=== PATIENT | female | born 1955 | race Caucasian/White ===

== ENCOUNTER 2016-10-17 04:12 | Inpatient (IN) | payer BC ==
[2016-10-17] MEDS ORDERED: SODIUM CHLORIDE 0.9% 1,000 ML IV STA ×2 (04:35)
[2016-10-17] MEDS ORDERED: SODIUM CHLORIDE 0.9% 500 ML IV STA (04:35)
[2016-10-17] MEDS ORDERED: IBUPROFEN 600 MG TAB PO STA (04:35)
[2016-10-17] MEDS ORDERED: ACETAMINOPHEN TAB 500 MG TAB PO STA (04:35)
[2016-10-17] MEDS ORDERED: IPRATROPIUM-ALBUTEROL 3 ML NEB INHALATION STA ×2 (04:36→04:43)
--- NOTE | 2016-10-17 04:43 | ED ---
General Adult HPI - General Chief complaint: Fever Stated complaint: weakness,cough Time Seen by Provider: 10/17/16 04:35 Source: patient, RN notes reviewed, old records reviewed Mode of arrival: ambulatory Limitations: no limitations - History of Present Illness Initial comments: This is a 61-year-old female ER for evaluation. Patient presents today for evaluation of cough congestion shortness of breath and fever. History of COPD and asthma, patient coming in with worsening shortness of breath on and off sick since the new year. No sick contacts, no recent hospitalizations. - Related Data Home Medications Medication Instructions Recorded Confirmed Fluticasone/Salmeterol [Advair Hfa 2 puff INHALATION BID PRN 08/23/14 10/17/16 115-21 Mcg Inhaler] Allergies Allergy/AdvReac Type Severity Reaction Status Date / Time No Known Allergies Allergy Verified 10/17/16 04:19 Review of Systems ROS Statement: Those systems with pertinent positive or pertinent negative responses have been documented in the HPI. ROS Other: All systems not noted in ROS Statement are negative. Past Medical History Past Medical History: Asthma History of Any Multi-Drug Resistant Organisms: None Reported Past Surgical History: Cholecystectomy, Hysterectomy Additional Past Surgical History / Comment(s): cataract Past Psychological History: No Psychological Hx Reported Smoking Status: Never smoker Past Alcohol Use History: None Reported Past Drug Use History: None Reported General Exam Limitations: no limitations General appearance: alert, in no apparent distress, anxious Head exam: Present: atraumatic, normocephalic, normal inspection Eye exam: Present: normal appearance, PERRL, EOMI. Absent: scleral icterus, conjunctival injection, periorbital swelling ENT exam: Present: normal exam, mucous membranes moist Neck exam: Present: normal inspection. Absent: tenderness, meningismus, lymphadenopathy Respiratory exam: Present: respiratory distress, wheezes, accessory muscle use, decreased breath sounds, prolonged expiratory. Absent: rales, rhonchi, stridor Cardiovascular Exam: Present: normal rhythm, tachycardia, normal heart sounds. Absent: systolic murmur, diastolic murmur, rubs, gallop, clicks GI/Abdominal exam: Present: soft, normal bowel sounds. Absent: distended, tenderness, guarding, rebound, rigid Extremities exam: Present: normal inspection, full ROM, normal capillary refill. Absent: tenderness, pedal edema, joint swelling, calf tenderness Back exam: Present: normal inspection Neurological exam: Present: alert, oriented X3, CN II-XII intact Psychiatric exam: Present: normal affect, normal mood Skin exam: Present: warm, dry, intact, normal color. Absent: rash Course Vital Signs 10/17/16 10/17/16 10/17/16 04:16 04:50 04:57 Temperature 103.1 F H Pulse Rate 127 H 112 H 100 Respiratory 24 Rate Blood Pressure 148/74 O2 Sat by Pulse 95 Oximetry 10/17/16 05:59 Temperature 100.5 F H Pulse Rate Respiratory Rate Blood Pressure O2 Sat by Pulse Oximetry - Reevaluation(s) Reevaluation #1: 10/17/16 06:40 Patient feeling mildly improved fever control, symptomatic control and therapy, still feeling weak with body pains, no significant shortness of breath no abdominal pain, again no nausea vomiting or diarrhea EKG Findings - EKG Comments: EKG Findings:: EKG shows sinus tachycardia rate 114, ND 130, QRS 86, QTC 407 Medical Decision Making - Medical Decision Making 61 female to the ED co fever, weakness, generalized body aches and pains. Patient with influenzae, no other source of infection - Lab Data Result diagrams: 10/17/16 04:45 10/17/16 04:45 Lab Results 10/17/16 10/17/16 10/17/16 Range/Units 04:31 04:45 04:45 WBC 9.5 (3.8-10.6) k/uL RBC 5.11 (3.80-5.40) m/uL Hgb 14.8 (11.4-16.0) gm/dL Hct 42.5 (34.0-46.0) % MCV 83.2 (80.0-100.0) fL MCH 28.9 (25.0-35.0) pg MCHC 34.7 (31.0-37.0) g/dL RDW 13.0 (11.5-15.5) % Plt Count 228 (150-450) k/uL Sodium 138 (137-145) mmol/L Potassium 4.6 (3.5-5.1) mmol/L Chloride 100 (98-107) mmol/L Carbon Dioxide 23 (22-30) mmol/L Anion Gap 15 mmol/L BUN 12 (7-17) mg/dL Creatinine 0.70 (0.52-1.04) mg/dL Est GFR (MDRD) Af Amer >60 (>60 ml/min/1.73 sqM) Est GFR (MDRD) Non-Af >60 (>60 ml/min/1.73 sqM) Glucose 137 H (74-99) mg/dL Plasma Lactic Acid Brent (0.7-2.0) mmol/L Calcium 9.4 (8.4-10.2) mg/dL Total Bilirubin 0.6 (0.2-1.3) mg/dL AST 31 (14-36) U/L ALT 48 (9-52) U/L Alkaline Phosphatase 81 (38-126) U/L Total Protein 7.6 (6.3-8.2) g/dL Albumin 4.6 (3.5-5.0) g/dL Urine Color Yellow Urine Appearance Clear (Clear) Urine pH 6.0 (5.0-8.0) Ur Specific [place] 1.021 (1.001-1.035) Urine Protein 1+ H (Negative) Urine Glucose (UA) Negative (Negative) Urine Ketones Negative (Negative) Urine Blood Small H (Negative) Urine Nitrate Negative (Negative) Urine Bilirubin Negative (Negative) Urine Urobilinogen <2.0 (<2.0) mg/dL Ur Leukocyte Esterase Negative (Negative) Urine RBC 3 (0-5) /hpf Urine WBC 3 (0-5) /hpf Ur Squamous Epith Cells 1 (0-4) /hpf Urine Bacteria Rare H (None) /hpf Hyaline Casts 5 H (0-2) /lpf Urine Mucus Occasional H (None) /hpf Influenza Type A RNA (Not Detectd) Influenza Type B (PCR) (Not Detectd) 10/17/16 10/17/16 Range/Units 04:45 04:50 WBC (3.8-10.6) k/uL RBC (3.80-5.40) m/uL Hgb (11.4-16.0) gm/dL Hct (34.0-46.0) % MCV (80.0-100.0) fL MCH (25.0-35.0) pg MCHC (31.0-37.0) g/dL RDW (11.5-15.5) % Plt Count (150-450) k/uL Sodium (137-145) mmol/L Potassium (3.5-5.1) mmol/L Chloride (98-107) mmol/L Carbon Dioxide (22-30) mmol/L Anion Gap mmol/L BUN (7-17) mg/dL Creatinine (0.52-1.04) mg/dL Est GFR (MDRD) Af Amer (>60 ml/min/1.73 sqM) Est GFR (MDRD) Non-Af (>60 ml/min/1.73 sqM) Glucose (74-99) mg/dL Plasma Lactic Acid Brent 1.2 (0.7-2.0) mmol/L Calcium (8.4-10.2) mg/dL Total Bilirubin (0.2-1.3) mg/dL AST (14-36) U/L ALT (9-52) U/L Alkaline Phosphatase (38-126) U/L Total Protein (6.3-8.2) g/dL Albumin (3.5-5.0) g/dL Urine Color Urine Appearance (Clear) Urine pH (5.0-8.0) Ur Specific [place] (1.001-1.035) Urine Protein (Negative) Urine Glucose (UA) (Negative) Urine Ketones (Negative) Urine Blood (Negative) Urine Nitrate (Negative) Urine Bilirubin (Negative) Urine Urobilinogen (<2.0) mg/dL Ur Leukocyte Esterase (Negative) Urine RBC (0-5) /hpf Urine WBC (0-5) /hpf Ur Squamous Epith Cells (0-4) /hpf Urine Bacteria (None) /hpf Hyaline Casts (0-2) /lpf Urine Mucus (None) /hpf Influenza Type A RNA Detected H (Not Detectd) Influenza Type B (PCR) Not Detected (Not Detectd) - Radiology Data Radiology results: report reviewed (CXR 2 view is negative for acute disease), image reviewed Disposition Clinical Impression: Influenza A, SIRS (systemic inflammatory response syndrome), Fever Disposition: ADMITTED IP TO THIS HOSP Condition: Good Instructions: Fever in Adults (ED) Referrals: Ronal Burns MD [Primary Care Provider] - 1-2 days
[2016-10-17] MEDS ORDERED: ALBUTEROL NEB (CONC) 2.5 MG/0.5 ML INHALATION STA (04:44)
[2016-10-17 04:55] LABS: CH 29.6; CHCM 35.7; HCT 42.5 % (34.0-46.0); HDW 2.95; HGB 14.8 gm/dL (11.4-16.0); Immature Gran Flag Slight; MCH 28.9 pg (25.0-35.0); MCHC 34.7 g/dL (31.0-37.0); MCV 83.2 fL (80.0-100.0); Mean Platelet Volume 6.9; RBC 5.11 m/uL (3.80-5.40); WBC 9.5 k/uL (3.8-10.6); WBC (Perox) 9.83
[2016-10-17 05:10] LABS: ALT 48 U/L (9-52); AST 31 U/L (14-36); Alkaline Phosphatase 81 U/L (38-126); Anion Gap 15 mmol/L; Blood Urea Nitrogen 12 mg/dL (7-17); Calcium 9.4 mg/dL (8.4-10.2); Carbon Dioxide 23 mmol/L (22-30); Chloride 100 mmol/L (98-107); Glucose 137 mg/dL (74-99); Non-African American GFR(MDRD) >60 (>60 ml/min/1.73 sqM); Potassium 4.6 mmol/L (3.5-5.1); Sodium 138 mmol/L (137-145); Total Bilirubin 0.6 mg/dL (0.2-1.3); Total Protein 7.6 g/dL (6.3-8.2)
[2016-10-17 05:25] LABS: Appearance,Urine Clear (Clear); Bacteria,Urine Rare /hpf; Bilirubin,Urine Negative (Negative); Glucose,Urine (UA) Negative (Negative); Ketones,Urine Negative (Negative); Leukocyte Esterase,Urine Negative (Negative); Mucus,Urine Occasional /hpf; Nitrite,Urine Negative (Negative); Particle Count 4273; Protein,Urine 1+ (Negative); RBC,Urine 3 /hpf (0-5); Specific Gravity,Urine 1.021 (1.001-1.035); Squamous Epithelial Cell,Urine 1 /hpf (0-4); UA Billing (MACRO vs. MICRO) MICRO; Urobilinogen,Urine <2.0 mg/dL (<2.0); WBC,Urine 3 /hpf (0-5)
--- NOTE | 2016-10-17 06:12 | XR ---
EXAMINATION TYPE: XR chest 2V DATE OF EXAM: 10/17/2016 5:32 AM COMPARISON: 05/13/2013 HISTORY: Asthma. Short of breath TECHNIQUE: Frontal and lateral views of the chest are obtained. FINDINGS: There is no heart failure nor confluent pneumonic infiltrate. There are no hilar masses. H eart and mediastinum are normal. Costophrenic angles are clear. IMPRESSION: No active cardiopulmonary disease. No change.
[2016-10-17] MEDS ORDERED: SODIUM CHLORIDE 0.9% 1,000 ML IV ONE (06:40)
[2016-10-17] MEDS ORDERED: HYDROmorphone 1 MG/ML 1 ML SYRINGE IVP STA (06:43)
[2016-10-17] MEDS ORDERED: HYDROmorphone 1 MG/ML 1 ML SYRINGE IVP PRN (06:43)
[2016-10-17] MEDS ORDERED: OSELTAMIVIR 75 MG CAP PO STA (06:43)
[2016-10-17] MEDS ORDERED: ACETAMINOPHEN TAB 500 MG TAB PO PRN (06:43)
[2016-10-17 06:56] LABS: Add Differential Manual Differential
[2016-10-17 07:02] LABS: Nucleated Red Blood Cells 0 /100 WBC (0-0); Total Cells Counted 200
[2016-10-17 07:12] LABS: Polychromasia Present
[2016-10-17 07:20] LABS: Toxic Vacuolation Present
[2016-10-17] MEDS ORDERED: OSELTAMIVIR 75 MG CAP PO SCH (09:00)
[2016-10-17] MEDS ORDERED: ENOXAPARIN 40 MG/0.4 ML SYRINGE SQ SCH (09:00)
[2016-10-17] MEDS ORDERED: IBUPROFEN 600 MG TAB PO SCH (09:00)
[2016-10-17] MEDS ORDERED: ONDANSETRON 4 MG/2 ML VIAL IVP STA (09:06)
[2016-10-17 11:47] VITALS: BP 122/70; PULSE 89; RESP 20; TEMP 96.9
--- NOTE | 2016-10-17 12:29 | P.CNPUL ---
History of Present Illness Consult date: 10/17/16 Reason for consult: other Chief complaint: Fever, weakness History of present illness: This is a 61-year-old female who sees my partner as her primary. She comes into the emergency room to be evaluated for fever cough and weakness. Apparently diagnosed with influenza A. Does have a history of underlying COPD and asthma. I'm not quite sure why she was admitted. Probably could've been sent home with Tamiflu and/or been admitted to the 23 hour overnight which is some IV fluids. Her home medications only include Advair. She has no ALLERGIES. Her only medical problem is that of asthma. She has had a cholecystectomy and hysterectomy. She is feeling better today. Her temperature was 103.1. Review of Systems A 12 point review of system is positive for weakness fatigue fever and possible mild dehydration. She also has a nonproductive cough. This all relates to her influenza A infection. Past Medical History Past Medical History: Asthma, COPD, Pneumonia History of Any Multi-Drug Resistant Organisms: None Reported Past Surgical History: Adenoidectomy, Cholecystectomy, Hysterectomy, Tonsillectomy Additional Past Surgical History / Comment(s): bilateral cataracts removed, R lower leg fx with surgical repair, colonoscopy. Past Psychological History: No Psychological Hx Reported Additional Psychological History / Comment(s): Pt resides with her spouse. She is independent. Smoking Status: Former smoker Past Alcohol Use History: None Reported Additional Past Alcohol Use History / Comment(s): Pt started smoking in 1968 and quit in 1997 Past Drug Use History: None Reported - Past Family History Father Family Medical History: No Reported History Additional Family Medical History / Comment(s): Father in a MVA Mother Family Medical History: No Reported History Additional Family Medical History / Comment(s): Mother is healthy and is 88yrs old. Medications and Allergies Home Medications Medication Instructions Recorded Confirmed Type Amoxicillin/Potassium Clav 1 tab PO BID 10/17/16 10/17/16 History [Amox-Clav 875-125 mg Tablet] predniSONE [predniSONE] 20 mg PO BID 10/17/16 10/17/16 History Allergies Allergy/AdvReac Type Severity Reaction Status Date / Time No Known Allergies Allergy Verified 10/17/16 04:19 Physical Exam Osteopathic Statement: *. No significant issues noted on an osteopathic structural exam other than those noted in the History and Physical/Consult. Vitals: Vital Signs Temp Pulse Pulse Resp BP BP Pulse Ox 10/17/16 11:30 96.9 F L 89 20 122/70 94 L 10/17/16 10:38 84 14 97/50 98 10/17/16 09:39 97.4 F L 85 14 105/61 95 10/17/16 09:08 89 15 117/67 96 10/17/16 08:00 98.3 F 86 16 109/57 95 10/17/16 06:43 102 H 16 118/54 94 L Intake and Output 10/16/16 10/17/16 10/17/16 22:59 06:59 14:59 Other: Voiding Method Toilet No acute distress, oriented 3. Mucous membranes are moist. No oral lesions. TMs EACs are normal. Nasal mucosa is normal. Neck supple. Full range of motion. No adenopathy. No neck vein distention. Cardiovascular examination reveals mild tachycardia. Heart rate about 100. His regular. S1-S2 normal. Lungs reveal few scattered mild rhonchi. No wheezes or crackles. Abdomen soft bowel sounds are heard. Extremities are intact. Results - Laboratory Findings CBC and BMP: 10/17/16 04:45 10/17/16 04:45 - Diagnostic Findings Chest x-ray: image reviewed (Chest x-ray medications and labs are reviewed.) Assessment and Plan (1) Fever Status: Acute (2) Influenza A Status: Acute Plan: Plan The patient is basically admitted for influenza A infection. In my opinion the patient could've been sent home with the Tamiflu. Also, as an alternative, the patient could receive some IV fluids in the emergency department treated for fever with Tylenol and Motrin started on Tamiflu discharged home. Finally, admission to the 23 hour overnight would've been acceptable as well. Time with Patient: Greater than 30
--- NOTE | 2016-10-17 19:00 | HP ---
H&P and DISCHARGE SUMMARY DATE OF ADMISSION: Patient is a 61-year-old female who came into the emergency department with complaints of feeling very ( ) going on for 2 days. Patient was found to have high-grade fever of 103 and patient was seen a couple of days ago ( ) x-ray was negative. Patient was tested for influenza here, which is positive. Patient is still quite a bit of body aches. Patient appears to be fatigued. Patient received IV fluids. Patient will be discharged today. Patient does have history of asthma, because of which patient is on prednisone. Patient is not in asthma exacerbation. I asked her to take just Symbicort and albuterol, and if she goes into asthma exacerbation, call the primary care physician and take prednisone at that time. Otherwise, I asked her to stay only on albuterol and Symbicort inhalational. Patient will be discharged on Tamiflu today. Patient's symptoms are expected to improve. Tamiflu may not be much beneficial ( ) 48 hours. Patient received IV fluids again. REVIEW OF SYSTEMS: CONSTITUTIONAL: No fever, no malaise, no fatigue. HEENT: No recent visual problems or hearing problems. Denied any sore throat. CARDIOVASCULAR: No chest pain, orthopnea, PND, no palpitations, no syncope. PULMONARY: No shortness of breath, no cough, no hemoptysis. GASTROINTESTINAL: No diarrhea, no nausea, no vomiting, no abdominal pain. Normoactive bowel sounds. NEUROLOGICAL: No headaches, no weakness, no numbness. HEMATOLOGICAL: Denies any bleeding or petechiae. GENITOURINARY: Denies any burning micturition, frequency, or urgency. MUSCULOSKELETAL/RHEUMATOLOGICAL: Denies any joint pain, swelling, or any muscle pain. ENDOCRINE: Denies any polyuria or polydipsia. GENERAL: As described in HPI. Fatigue, fever, chills, generalized body aches and myalgia. The rest of the 14 point review of systems is negative. Past medical history is significant for: 1. Asthma. 2. Adenoidectomy. 3. Cholecystectomy. 4. Hysterectomy. 5. Tonsillectomy in the past. SOCIAL HISTORY: Former smoker; quit smoking in 1997. Denied any alcohol abuse or any drug abuse. FAMILY HISTORY: Father in a motor vehicle accident. Mother is 76 years old. HOME MEDICATIONS: 1. Oral prednisone. 2. Amoxicillin. 3. Symbicort. 4. Albuterol. PHYSICAL EXAMINATION: VITAL SIGNS: Temperature 96.9; 24-hour T-max is 103. Pulse of 110 when she came in; now 84. Respiratory rate of 20. Blood pressure is 97/50. Saturating at 94% on room air. GENERAL: Patient appears to be tired and fatigued with malaise. Alert and oriented x3. HEENT: Pupils are round and equally reacting to light. EOMI. No scleral icterus. No conjunctival pallor. Normocephalic, atraumatic. No pharyngeal erythema. No thyromegaly. CARDIOVASCULAR: S1 and S2 present. No murmurs, rubs, or gallops. PULMONARY: Chest is clear to auscultation, no wheezing or crackles. ABDOMEN: Soft, nontender, nondistended, normoactive bowel sounds. No palpable organomegaly. MUSCULOSKELETAL: No joint swelling or deformity. EXTREMITIES: No cyanosis, clubbing, or pedal edema. NEUROLOGICAL: Gross neurological examination did not reveal any focal deficits. SKIN: No rashes. LABORATORY DATA: CBC, CMP are essentially within normal limits. ASSESSMENT AND PLAN: 1. Fever and systemic inflammatory response syndrome secondary to influenza. Patient received IV fluids. Patient will be discharged on Tamiflu. Follow up with Dr. Burns in 3 to 7 days. 2. History of asthma without any exacerbation. Management of her asthma at home, as mentioned above. H&P and discharge summary. Patient will follow up with Dr. Burns.
== END 2016-10-17 15:50 | disposition home or self-care (01) | DRG 195 ==
LOC: EC 04:12 → 4MS4W 06:37
PROVIDERS: ADMIT Internal Medicine; ATTEND Internal Medicine
DX: J10.1 Influenza due to other identified influenza virus with other respiratory manifestations (principal); J44.9 Chronic obstructive pulmonary disease, unspecified; J45.909 Unspecified asthma, uncomplicated; Z87.891 Personal history of nicotine dependence
CPT/HCPCS: 36415; 71020; 80053; 81001; 83605; 85025; 87040; 87086; 87502; 93005; 94640; 96361; 96372; 96374; 96375; 99285

== ENCOUNTER → 2019-10-26 | Outpatient (CLI) | payer MEDICARE ==
--- NOTE | 2019-10-27 10:20 | MM ---
Reason for exam: screening (asymptomatic). Last mammogram was performed 5 years and 2 months ago. History: Patient is postmenopausal. Family history of breast cancer in maternal grandmother. Physical Findings: A clinical breast exam by your physician is recommended on an annual basis and results should be correlated with mammographic findings. MG 3D Screening Mammo W/Cad Bilateral CC and MLO view(s) were taken. Prior study comparison: August 31, 2014, left breast MG work up mamm w CAD LT. August 18, 2014, bilateral MG screening mammo w CAD. The breast tissue is heterogeneously dense. This may lower the sensitivity of mammography. Finding #1: There is a 5-6 mm circumscribed oval mass located 1-2 cm from the nipple in the subareolar position of the right breast. Finding #2: There is a 7 mm circumscribed mass located 9 cm from the nipple in the middle, central position of the left breast on CC 26/64 and MLO 45/77. Finding #3: There are typically benign round, linear calcifications in both breasts. New finding since August 31, 2014. ASSESSMENT: Incomplete: need additional imaging evaluation, BI-RAD 0 RECOMMENDATION: Ultrasound of both breasts. [facility] will attempt to contact patient to return for ultrasound.
== END | disposition home or self-care (01) ==
LOC: RADMAMWWP 07:03
PROVIDERS: ATTEND Family Medicine
DX: Z12.31 Encounter for screening mammogram for malignant neoplasm of breast (principal)
CPT/HCPCS: 77063; 77067

== ENCOUNTER → 2019-11-04 | Outpatient (CLI) | payer MEDICARE ==
--- NOTE | 2019-11-04 13:27 | USB ---
Reason for exam: additional evaluation requested from abnormal screening. History: Patient is postmenopausal. Family history of breast cancer in maternal grandmother. US Breast Workup Limited CAROL Right limited breast ultrasound including focal area of concern, retroareolar and axilla demonstrates a 0.3 x 0.4 x 0.2cm oval, complicated cyst at 12 o'clock, a 0.4 x 0.5 x 0.3cm oval, cystic lesion at 1 o'clock, correlates with mammogram, a 0.8 x 0.9 x 0.3cm solid, hyperechoic lipoma at 2 o'clock and a 1.2 x 0.9 x 0.5cm oval, solid, hyperechoic lipoma at 4 o'clock. Left limited breast ultrasound including focal area of concern, retroareolar and axilla demonstrates a 0.4 x 0.3 x 0.1cm oval, cystic, complicated lesion at 9 o'clock, correlates with mammogram and a 0.9 x 0.5 x 0.3cm oval, solid, hyperechoic lipoma at 9 o'clock, consolidation to two. Multiple lipomas over the patient's body per patient history. These results were verbally communicated with the patient and result sheet given to the patient on 11/04/19. ASSESSMENT: Benign, BI-RAD 2 RECOMMENDATION: Return to routine screening mammogram schedule for both breasts.
== END | disposition home or self-care (01) ==
LOC: RADUSWWP 09:37
PROVIDERS: ATTEND Family Medicine
DX: R92.8 Other abnormal and inconclusive findings on diagnostic imaging of breast (principal)

== ENCOUNTER → 2019-11-05 | Outpatient (CLI) | payer MEDICARE ==
--- NOTE | 2019-11-05 08:43 | US ---
EXAMINATION TYPE: US carotid duplex BILAT DATE OF EXAM: 11/05/2019 COMPARISON: NONE CLINICAL HISTORY: R42 Intermittent Headaches,i10 HTN,E78.2 Hyperlipi. Dizziness. EXAM MEASUREMENTS: RIGHT: Peak Systolic Velocity (PSV) cm/sec ----- Right CCA: 91.7 ----- Right ICA: 121 ----- Right ECA: 130 ICA/CCA ratio: 1.3 RIGHT: End Diastole cm/sec ----- Right CCA: 25.8 ----- Right ICA: 42.8 ----- Right ECA: 12.2 LEFT: Peak Systolic Velocity (PSV) cm/sec ----- Left CCA: 103 ----- Left ICA: 125 ----- Left ECA: 113 ICA/CCA ratio: 1.2 LEFT: End Diastole cm/sec ----- Left CCA: 29.2 ----- Left ICA: 48.9 ----- Left ECA: 10.2 VERTEBRALS (direction of flow): Right Vertebral: Antegrade Left Vertebral: Antegrade Rhythm: Normal Slightly elevated right ECA. No significant stenosis. Wall thickening and plaque seen in right bulb. IMPRESSION: Mild degree of grayscale atheromatous plaquing with no sonographically evident hemodynam ically significant stenosis within either visualized carotid arterial system. Criteria for Assigning % of Stenosis / Diameter reduction (Estimation based on the indirect measurements of the internal carotid artery velocities (ICA PSV). 1. Normal (no stenosis)=ICA PSV < 125 cm/s: ratio < 2.0: ICA EDV<40 cm/s. 2. Less than 50% stenosis=ICA PSV < 125 cm/s: ratio < 2.0: ICA EDV<40 cm/s. 3. 50 to 69% stenosis=ICA PSV of 125 to 230 cm/s: ration 2.0 ? 4.0: ICA EDV 40-100 cm/s. 4. Greater than 70% stenosis to near occlusion= ICA PSV > 230 cm/s: ratio > 4.0: ICA EDV > 100 cm/s. 5. Near occlusion= ICA PSV velocities may be low or undetectable: variable ratio and ICA EDV. 6. Total occlusion=unable to detect flow.
== END | disposition home or self-care (01) ==
LOC: RADUSWWP 07:37
PROVIDERS: ATTEND Family Medicine
DX: I65.23 Occlusion and stenosis of bilateral carotid arteries (principal)
CPT/HCPCS: 93880

== ENCOUNTER → 2019-11-09 | Outpatient (CLI) | payer MEDICARE ==
--- NOTE | 2019-11-10 07:28 | MR ---
EXAMINATION TYPE: MR brain wo con DATE OF EXAM: 11/09/2019 COMPARISON: NONE HISTORY: Dizziness TECHNIQUE: T1-weighted sagittal, T2, FLAIR, and diffusion axial, and T2 coronal coronal views of the brain are submitted. FINDINGS: There is no evidence of acute ischemia. The ventricles, basal cisterns, and sulci overlying the conv exities are consistent with the patient's age. There is no mass effect. Craniocervical junction maintained. Sella turcica has a normal appearance. No cerebellopontine angle mass. Extensive changes of chronic sinusitis noted. Bilateral chronic masto iditis noted. Vasculature is diminutive in size including the Vertebrobasilar system. This likely is congenital. White matter: There are a few scattered sub-5 mm tiny areas of abnormal signal white matter too small to characterize. Likely on the basis of remote microvascular ischemia. IMPRESSION: 1. No acute intracranial process. There is extensive changes of chronic sinusitis and bilateral masto iditis. 2. Diminutive vertebrobasilar system can be associated with vertebrobasilar insufficiency correlate c samara. 3. Minimal nonspecific white matter changes could be on the basis of hypertension, migraine headaches or remote microvascular ischemia.
== END | disposition home or self-care (01) ==
LOC: RADMRIMAIN 18:55
PROVIDERS: ATTEND Family Medicine
DX: I10 Essential (primary) hypertension (principal); R90.89 Other abnormal findings on diagnostic imaging of central nervous system; R93.0 Abnormal findings on diagnostic imaging of skull and head, not elsewhere classified
CPT/HCPCS: 70551

== ENCOUNTER 2020-06-09 09:42 | Day surgery (SDC) | payer MEDICARE ==
[2020-06-06 15:36] VITALS: BMI 34.3
[~2020-06-09 09:42] MED LIST: LACTATED RINGERS 1,000 ML IV SCH
[2020-06-09 10:02] VITALS: RESP 16; TEMP 97.5
[2020-06-09] MEDS ORDERED: LIDOCAINE 1% (10MG/ML) FOR IV START INTRADERMA ONE (10:20)
[2020-06-09] MEDS ORDERED: ONDANSETRON 4 MG/2 ML VIAL IVP ONE (10:20)
[2020-06-09] MEDS ORDERED: PROPOFOL 10 MG/ML 20 ML VIAL IV ONE (11:04)
--- NOTE | 2020-06-09 11:17 | P.PCN ---
Date of Procedure: 06/09/20 Procedure(s) Performed: BRIEF HISTORY: Patient is a 64-year-old pleasant female scheduled for an elective colonoscopy as a part of screening for colorectal neoplasia. PROCEDURE PERFORMED: Colonoscopy. PREOPERATIVE DIAGNOSIS: Screening for colon cancer. IV sedation per Anesthesia. PROCEDURE: After informed consent was obtained, the patient, was brought into the endoscopy unit. IV sedation was administered by Anesthesia under continuous monitoring. Digital rectal examination was normal. Initially the Olympus CF-160 flexible video colonoscope was then inserted in the rectum, gradually advanced into the cecum without any difficulty. Careful examination was performed as the scope was gradually being withdrawn. Ileocecal valve and the appendiceal orifice were visualized and appeared normal. Prep was excellent. Mucosa of the cecum, ascending colon, transverse colon, descending colon, sigmoid colon, and rectum appeared normal. Retroflexion was performed in the rectum and no lesions were seen. The patient tolerated the procedure well. IMPRESSION: Normal-appearing colon from rectum to cecum no evidence of colorectal. RECOMMENDATIONS: Findings of this examination were discussed with the patient family. She was advised to have a repeat screening colonoscopy in 10 years.
[2020-06-09 11:56] VITALS: BP 141/78; PULSE 88
== END 2020-06-09 12:02 | disposition home or self-care (01) ==
LOC: ORWHC2ENDO 09:42
PROVIDERS: ATTEND Internal Medicine Gastroenterology
DX: Z12.11 Encounter for screening for malignant neoplasm of colon (principal); I10 Essential (primary) hypertension; E78.5 Hyperlipidemia, unspecified; J44.9 Chronic obstructive pulmonary disease, unspecified; Z90.710 Acquired absence of both cervix and uterus; Z79.51 Long term (current) use of inhaled steroids; Z79.82 Long term (current) use of aspirin; Z79.899 Other long term (current) drug therapy
CPT/HCPCS: J2405; J2704; G0121; 45378

== ENCOUNTER 2025-01-25 09:04 | Observation (INO) | payer MEDICARE ==
[2025-01-25] MEDS: NITROGLYCERIN SL TABS 0.4 MG TAB SUBLINGUAL STA (09:48)
[2025-01-25] MEDS: ASPIRIN 81 MG PO STA (09:55)
[2025-01-25] MEDS: SODIUM CHLORIDE 0.9% 1,000 ML IV STA (09:56)
[2025-01-25 10:02] LABS: Basophils # (A) 0.04 10*3/uL (0.00-0.10); Basophils % (A) 0.6 %; Eosinophils # (A) 0.33 10*3/uL (0.04-0.35); Eosinophils % (A) 4.6 %; HCT 40.6 % (37.2-46.3); Lymphocytes # (A) 1.77 10*3/uL (0.90-5.00); Lymphocytes % (A) 24.7 %; MCH 30.1 pg (27.0-32.0); MCHC 34.5 g/dL (32.0-37.0); MCV 87.3 fL (80.0-97.0); Mean Platelet Volume 8.3 fL (9.5-12.2); Monocytes # (A) 0.64 10*3/uL (0.20-1.00); Monocytes % (A) 8.9 %; Neutrophils # (A) 4.36 10*3/uL (1.80-7.70); Neutrophils % (A) 60.6 %; Platelet Count 220 10*3/uL (140-440); RBC 4.65 10*6/uL (4.10-5.20); WBC 7.18 10*3/uL (4.50-10.00)
[2025-01-25 10:09] LABS: INR 0.9 (<1.2)
[2025-01-25 10:10] LABS: Partial Thromboplastin Time 30.6 sec (22.0-30.0); Prothrombin Time 10.4 sec (10.0-12.5)
[2025-01-25 10:12] LABS: ALT 20 U/L (4-34); AST 21 U/L (14-36); African American GFR (CKD) >90 (>60 ml/min/1.73 sqM); Albumin 4.2 g/dL (3.5-5.0); Alkaline Phosphatase 71 U/L (38-126); Anion Gap 10 mmol/L; Blood Urea Nitrogen 18 mg/dL (7-17); Calcium 9.6 mg/dL (8.4-10.2); Carbon Dioxide 28 mmol/L (22-30); Chloride 103 mmol/L (98-107); Glucose 95 mg/dL (74-99); Lipase 129 U/L (23-300); Magnesium 1.8 mg/dL (1.6-2.3); Non-African American GFR(CKD) >90 (>60 ml/min/1.73 sqM); Potassium 4.3 mmol/L (3.5-5.1); Sodium 141 mmol/L (137-145); Total Bilirubin 0.4 mg/dL (0.2-1.3); Total Protein 6.9 g/dL (6.3-8.2)
[2025-01-25 10:20] LABS: NT-Pro-B-Type Natriuretic Pept 78 pg/mL
[2025-01-25] MEDS: NITROGLYCERIN OINT 1 INCH/GM PACKET TOPICAL SCH (10:35)
--- NOTE | 2025-01-25 10:43 | XR ---
EXAMINATION TYPE: XR chest 2V DATE OF EXAM: 01/25/2025 10:13 AM COMPARISON: 10/17/2016 CLINICAL INDICATION: Female, 69 years old with history of Chest Pain, , TECHNIQUE: PA and lateral views FINDINGS: Heart normal size. Aorta and pulmonary vasculature within normal limits. Mild hyperinflation mild int erstitial prominence is a chronic appearance. Some stringy atelectasis at the left base. No consolida tion or pleural effusion. IMPRESSION: Correlate for underlying COPD. Some strandy atelectasis at the left base. Otherwise, no acute process seen. [facility], Workstation: [id number], 01/25/2025 10:41 AM
[2025-01-25] MEDS ORDERED: ONDANSETRON 4 MG/2 ML VIAL IVP PRN (11:46)
[2025-01-25] MEDS ORDERED: NALOXONE 0.4 MG/ML 1 ML VIAL IV PRN (11:46)
--- NOTE | 2025-01-25 11:48 | ED ---
General Adult HPI - General Chief complaint: Chest Pain Stated complaint: chest pain Time Seen by Provider: 01/25/25 09:20 Source: patient, RN notes reviewed, old records reviewed Mode of arrival: ambulatory Limitations: no limitations - History of Present Illness Initial comments: Patient is a 69-year-old female presents emergency department complaint of chest pain. Has been present since 1 AM this morning. Has not subsided. Located over the left inferior chest wall. No radiation. No nausea or vomiting. No diaphoresis. No cardiac history other than hypertension hyperlipidemia. No history of CAD. History of asthma and COPD. Presents for further evaluation at this time. Denies any fevers, chills, shortness of breath. - Related Data Home Medications Medication Instructions Recorded Confirmed Atorvastatin [Lipitor] 40 mg PO DAILY 04/14/20 01/25/25 Fluticasone Propion/Salmeterol 1 puff INHALATION RT-BID PRN 01/25/25 01/25/25 [Fluticasone-Salmeterol 113-14] lisinopriL [Zestril] 10 mg PO DAILY 01/25/25 01/25/25 Allergies Allergy/AdvReac Type Severity Reaction Status Date / Time No Known Allergies Allergy Verified 01/25/25 12:38 Review of Systems ROS Statement: Those systems with pertinent positive or pertinent negative responses have been documented in the HPI. Review of Systems: CONST: Denies fever EYES: Denies blurry vision ENT: Denies nasal congestion C/V: Endorses chest pain RESP: Denies shortness of breath GI: Denies abdominal pain : Denies dysuria SKIN: Denies rash. MSK: Denies joint pain. NEURO: Denies headache ROS Other: All systems not noted in ROS Statement are negative. Past Medical History Past Medical History: Asthma, COPD, Hyperlipidemia, Hypertension, Pneumonia History of Any Multi-Drug Resistant Organisms: None Reported Past Surgical History: Adenoidectomy, Cholecystectomy, Hysterectomy, Tonsillectomy Additional Past Surgical History / Comment(s): bilateral cataracts removed, R lower leg fx with surgical repair, colonoscopy. Past Anesthesia/Blood Transfusion Reactions: No Reported Reaction, Postoperative Nausea & Vomiting (PONV) Past Psychological History: No Psychological Hx Reported Smoking Status: Former smoker Past Alcohol Use History: None Reported Past Drug Use History: None Reported - Past Family History Father Family Medical History: No Reported History Additional Family Medical History / Comment(s): Father in a MVA Mother Family Medical History: No Reported History Additional Family Medical History / Comment(s): Mother is healthy and is 88yrs old. General Exam - General Exam Comments Initial Comments: General: Appears in no acute distress. HEAD: Normal with no signs of head trauma. EYES: PERRLA, EOMI, conjunctiva normal, no discharge. ENT: Hearing grossly intact, normal oropharynx. RESPIRATORY: Clear breath sounds bilaterally. No wheezes, rales, or rhonchi. C/V: Regular rate and rhythm. S1 and S2 auscultated, no edema, peripheral pulses 2+ and intact throughout. Chest pain not reproducible on palpation. ABD: Abd is soft, nontender, nondistended EXT: Normal range of motion, no obvious deformity SKIN: No rashes or lesions observed on exposed skin. NEURO: Alert and oriented x 4. Limitations: no limitations Course Vital Signs 01/25/25 01/25/25 01/25/25 09:05 09:48 09:58 Temperature 97.6 F Pulse Rate 90 76 83 Respiratory 17 18 18 Rate Blood Pressure 168/86 174/96 152/85 O2 Sat by Pulse 98 Oximetry 01/25/25 01/25/25 01/25/25 10:04 10:38 11:00 Temperature Pulse Rate 85 77 72 Respiratory 18 18 18 Rate Blood Pressure 149/82 148/85 145/77 O2 Sat by Pulse 95 96 97 Oximetry 01/25/25 01/25/25 01/25/25 12:00 13:00 14:00 Temperature 97.9 F Pulse Rate 73 75 72 Respiratory 18 18 18 Rate Blood Pressure 156/74 131/64 132/70 O2 Sat by Pulse 97 96 96 Oximetry Medical Decision Making - Medical Decision Making Was pt. sent in by a medical professional or institution (, PA, [employer], urgent care, hospital, or jail...) When possible be specific @ -No Did you speak to anyone other than the patient for history (EMS, parent, family, police, friend...)? What history was obtained from this source @ -No Did you review nursing and triage notes (agree or disagree)? Why? @ -I reviewed and agree with nursing and triage notes Were old charts reviewed (outside hosp., previous admission, EMS record, old EKG, old radiological studies, urgent care reports/EKG's, jail records)? Report findings @ -No old charts were reviewed Differential Diagnosis (chest pain, altered mental status, abdominal pain women, abdominal pain men, vaginal bleeding, weakness, fever, dyspnea, syncope, headache, dizziness, GI bleed, back pain, seizure, CVA, palpatations, mental health, musculoskeletal)? @ -Differential Chest Pain: Stable Angina, Unstable Angina, STEMI, NSTEMI Aortic Dissection, Pneumothorax, Musculoskeletal, Esophageal Spasm GERD, Cholecystitis, Pancreatitis, Zoster, t his is not meant to be an all-inclusive list. EKG interpreted by me (3pts min.). @ -As above X-rays interpreted by me (1pt min.). @ -Chest x-ray reveals no obvious acute cardiopulmonary process. CT interpreted by me (1pt min.). @ -None done U/S interpreted by me (1pt. min.). @ -None done What testing was considered but not performed or refused? (CT, X-rays, U/S, labs)? Why? @ -None What meds were considered but not given or refused? Why? @ -None Did you discuss the management of the patient with other professionals (professionals i.e. , PA, [employer], lab, RT, psych nurse, social services coordinator, soft iron inspector, teacher, campus security officer, ed case manager)? Give summary @ -Discussed with the admitting provider, Dr. Davenport who accepted the admission. Was smoking cessation discussed for >3mins.? @ -No Was critical care preformed (if so, how long)? @ -No Were there social determinants of health that impacted care today? How? (Homelessness, low income, unemployed, alcoholism, drug addiction, transportatio n, low edu. Level, literacy, decrease access to med. care, fdc, rehab)? @ -No Was there de-escalation of care discussed even if they declined (Discuss DNR or withdrawal of care, Hospice)? DNR status @ -No What co-morbidities impacted this encounter? (DM, HTN, Smoking, COPD, CAD, Cancer, CVA, ARF, Chemo, Hep., AIDS, mental health diagnosis, sleep apnea, morbid obesity)? @ -None Was patient admitted / discharged? Hospital course, mention meds given and route, prescriptions, significant lab abnormalities, going to OR and other pertinent info. @ -Patient presents for left-sided chest pain. Ongoing for numerous hours. Patient will be given 324 mg of aspirin as well as nitro. She was in agreement this plan. Will obtain cardiac workup. Vitals are within except limits. EKG shows no signs of acute ischemia. Laboratory studies remarkable for undetectable troponin. Chest x-ray unremarkable. On reevaluation, patient's chest pain is resolved with 3 nitroglycerin tablets. Patient will be placed on Nitropaste. I discussed results with the patient. She will be admitted to the hospital at this time. She was in agreement this plan. Cardiology consulted. Echo ordered. I spoke with the admitting provider, Dr. Davenport who accepted the admission. Undiagnosed new problem with uncertain prognosis? @ -No Drug Therapy requiring intensive monitoring for toxicity (Heparin, Nitro, Insu filiberto, Cardizem)? @ -No Were any procedures done? @ -No Diagnosis/symptom? @ -Chest pain Acute, or Chronic, or Acute on Chronic? @ -Acute Uncomplicated (without systemic symptoms) or Complicated (systemic symptoms)? @ -Complicated Side effects of treatment? @ -No Exacerbation, Progression, or Severe Exacerbation? @ -No Poses a threat to life or bodily function? How? (Chest pain, USA, IA, pneumonia, PE, COPD, DKA, ARF, appy, cholecystitis, CVA, Diverticulitis, Homicidal, Suicidal, threat to staff... and all critical care pts) @ -Yes - Lab Data Result diagrams: 01/25/25 09:44 01/25/25 09:44 Lab Results 01/25/25 01/25/25 01/25/25 Range/Units 09:44 09:44 09:44 WBC 7.18 (4.50-10.00) 10*3/uL RBC 4.65 (4.10-5.20) 10*6/uL Hgb 14.0 (12.0-15.0) g/dL Hct 40.6 (37.2-46.3) % MCV 87.3 (80.0-97.0) fL MCH 30.1 (27.0-32.0) pg MCHC 34.5 (32.0-37.0) g/dL Plt Count 220 (140-440) 10*3/uL MPV 8.3 L (9.5-12.2) fL Immature Gran % (Auto) 0.6 % Neutrophils % 60.6 % Lymphocytes % 24.7 % Monocytes % 8.9 % Eosinophils % 4.6 % Basophils % 0.6 % Immature Gran # 0.04 (0.00-0.04) 10*3/uL Neutrophils # 4.36 (1.80-7.70) 10*3/uL Lymphocytes # 1.77 (0.90-5.00) 10*3/uL Monocytes # 0.64 (0.20-1.00) 10*3/uL Eosinophils # 0.33 (0.04-0.35) 10*3/uL Basophils # 0.04 (0.00-0.10) 10*3/uL PT 10.4 (10.0-12.5) sec INR 0.9 (<1.2) APTT 30.6 H (22.0-30.0) sec Sodium 141 (137-145) mmol/L Potassium 4.3 (3.5-5.1) mmol/L Chloride 103 (98-107) mmol/L Carbon Dioxide 28 (22-30) mmol/L Anion Gap 10 mmol/L BUN 18 H (7-17) mg/dL Creatinine 0.56 (0.52-1.04) mg/dL Est GFR (CKD-EPI)AfAm >90 (>60 ml/min/1.73 sqM) Est GFR (CKD-EPI)NonAf >90 (>60 ml/min/1.73 sqM) Glucose 95 (74-99) mg/dL Calcium 9.6 (8.4-10.2) mg/dL Magnesium 1.8 (1.6-2.3) mg/dL Total Bilirubin 0.4 (0.2-1.3) mg/dL AST 21 (14-36) U/L ALT 20 (4-34) U/L Alkaline Phosphatase 71 (38-126) U/L Troponin I (0.000-0.034) ng/mL NT-Pro-B Natriuret Pep 78 pg/mL Total Protein 6.9 (6.3-8.2) g/dL Albumin 4.2 (3.5-5.0) g/dL Lipase 129 (23-300) U/L TSH (0.465-4.680) mIU/L 05/05/25 05/05/25 Range/Units 09:44 09:44 WBC (4.50-10.00) 10*3/uL RBC (4.10-5.20) 10*6/uL Hgb (12.0-15.0) g/dL Hct (37.2-46.3) % MCV (80.0-97.0) fL MCH (27.0-32.0) pg MCHC (32.0-37.0) g/dL Plt Count (140-440) 10*3/uL MPV (9.5-12.2) fL Immature Gran % (Auto) % Neutrophils % % Lymphocytes % % Monocytes % % Eosinophils % % Basophils % % Immature Gran # (0.00-0.04) 10*3/uL Neutrophils # (1.80-7.70) 10*3/uL Lymphocytes # (0.90-5.00) 10*3/uL Monocytes # (0.20-1.00) 10*3/uL Eosinophils # (0.04-0.35) 10*3/uL Basophils # (0.00-0.10) 10*3/uL PT (10.0-12.5) sec INR (<1.2) APTT (22.0-30.0) sec Sodium (137-145) mmol/L Potassium (3.5-5.1) mmol/L Chloride (98-107) mmol/L Carbon Dioxide (22-30) mmol/L Anion Gap mmol/L BUN (7-17) mg/dL Creatinine (0.52-1.04) mg/dL Est GFR (CKD-EPI)AfAm (>60 ml/min/1.73 sqM) Est GFR (CKD-EPI)NonAf (>60 ml/min/1.73 sqM) Glucose (74-99) mg/dL Calcium (8.4-10.2) mg/dL Magnesium (1.6-2.3) mg/dL Total Bilirubin (0.2-1.3) mg/dL AST (14-36) U/L ALT (4-34) U/L Alkaline Phosphatase (38-126) U/L Troponin I <0.012 (0.000-0.034) ng/mL NT-Pro-B Natriuret Pep pg/mL Total Protein (6.3-8.2) g/dL Albumin (3.5-5.0) g/dL Lipase (23-300) U/L TSH 1.510 (0.465-4.680) mIU/L - EKG Data -: EKG Interpreted by Me EKG Comments: 12-lead Electrocardiogram Interpretation Note EKG was reviewed and interpreted by myself. 12-lead ECG performed at 0933 is interpreted by me as revealing normal sinus rhythm at a rate of 81 beats per minute. [place] is normal. IN interval is 140 ms, QRS duration is 97 ms, QTc is 419 ms.. There were no ST or T wave abnormalities to suggest myocardial ischemia or injury. R wave progression across the precordium was satisfactory. By my interpretation this EKG is non-diagnostic for acute ischemia. Disposition Clinical Impression: Chest pain Disposition: ADMITTED IP TO THIS [facility] Condition: Stable Time of Disposition: 11:45
--- NOTE | 2025-01-25 12:09 | P.HPIM ---
History of Present Illness H&P Date: 01/25/25 Patient is a 69-year-old female with past medical history of asthma, remote smoking history quit in 1997, hyperlipidemia, hypertension, who presented to the ER on 01/25/2025 with chest pain that started last night at rest, described as dull ache under her left breast, nonradiating, no alleviating or exacerbating factors. No prior history of pain like that in the past, no associated shortn ess of breath, dizziness, lightheadedness, nausea, vomiting, abdominal pain. She tried to take Tums history initially thought it was indigestion, no symptoms relief. The pain was persistently 7 out of 10, prompting her to come for further evaluation to the ER. On admission afebrile, heart rate in 70s, BP elevated 168/87, satting well on room air. Pertinent positives and negatives as discussed in HPI, a complete review of systems was performed and all other systems are negative. Blood work showed unremarkable CBC, CMP, BNP and troponin negative. Chest x-ray showed signs of COPD, left basilar atelectasis, no acute process. Patient received nitroglycerin with chest pain resolution, will be admitted as observation for cardiology consultation and evaluation of chest pain Patient seen and examined at bedside. [] Vital signs reviewed General: nontoxic, no distress, appears at stated age Derm: warm, dry Head: atraumatic, normocephalic, symmetric Eyes: EOMI, no lid lag, anicteric sclera, pupils equal round reactive to light ENT: Nose and ears atraumatic Neck: No thyromegaly, supple Mouth: no lip lesion, mucus membranes moist Cardiovascular: S1S2 reg, no murmur, no edema Lungs: clear to auscultation bilateral, no rhonchi, no rales, no wheeze, no accessory muscle use Abdominal: soft, nontender to palpation, no guarding, no appreciable organomegaly Ext: no gross muscle atrophy, muscle strength muscle strength 5 out of 5 in all 4 extremities, no contractures Neuro: CN II-XII grossly intact Psych: Alert, oriented, appropriate affect Assessment/Plan: Chest pain -Cardiology consulted, appreciate recommendations -Continue atorvastatin 40 mg nightly -Check metabolic panel with TSH, lipid panel, A1c -TTE ordered and pending Hypertension Hyperlipidemia -Continue home lisinopril 5 mg p.o. daily, atorvastatin 40 mg p.o. daily as above Mild intermittent asthma not in acute exacerbation -Continue home Advair 2 puffs twice daily -he patient is admitted with an anticipated karla than 2 midnight stay as observation] status for evaluation of chest pain. CODE STATUS: Full DVT prophylaxis: Lovenox Anticipated discharge date: 01/[address]: Home A total of 40 minutes was spent on the care of this complex patient more than 50% of the time was spent in counseling and care coordination. Past Medical History Past Medical History: Asthma, COPD, Hyperlipidemia, Hypertension, Pneumonia History of Any Multi-Drug Resistant Organisms: None Reported Past Surgical History: Adenoidectomy, Cholecystectomy, Hysterectomy, Tonsillectomy Additional Past Surgical History / Comment(s): bilateral cataracts removed, R lower leg fx with surgical repair, colonoscopy. Past Anesthesia/Blood Transfusion Reactions: No Reported Reaction, Postoperative Nausea & Vomiting (PONV) Past Psychological History: No Psychological Hx Reported Smoking Status: Former smoker Past Alcohol Use History: None Reported Past Drug Use History: None Reported - Past Family History Father Family Medical History: No Reported History Additional Family Medical History / Comment(s): Father in a MVA Mother Family Medical History: No Reported History Additional Family Medical History / Comment(s): Mother is healthy and is 88yrs old. Medications and Allergies Home Medications Medication Instructions Recorded Confirmed Type Atorvastatin [Lipitor] 40 mg PO HS 04/14/20 06/06/20 History Fluticasone Propion/Salmeterol 2 puff INHALATION BID 04/14/20 06/06/20 History [Advair Hfa 115-21 Mcg Inhaler] Aspirin [Adult Low Dose Aspirin EC] 81 mg PO DAILY 06/06/20 06/06/20 History lisinopriL [Zestril] 5 mg PO DAILY 06/06/20 06/06/20 History Allergies Allergy/AdvReac Type Severity Reaction Status Date / Time No Known Allergies Allergy Verified 01/25/25 09:08 Physical Exam Vitals: Vital Signs Temp Pulse Resp BP Pulse Ox 01/25/25 10:38 77 18 148/85 96 01/25/25 10:04 85 18 149/82 95 01/25/25 09:58 83 18 152/85 01/25/25 09:48 76 18 174/96 01/25/25 09:05 97.6 F 90 17 168/86 98 Intake and Output 01/24/25 01/25/25 01/25/25 22:59 06:59 14:59 Other: Weight 81.647 kg Results CBC & Chem 7: 01/25/25 09:44 01/25/25 09:44 Labs: Abnormal Lab Results - Last 24 Hours (Table) 01/25/25 01/25/25 01/25/25 Range/Units 09:44 09:44 09:44 MPV 8.3 L (9.5-12.2) fL APTT 30.6 H (22.0-30.0) sec BUN 18 H (7-17) mg/dL
[2025-01-25 15:39] LABS: Chol/HDL Ratio 4.14 Ratio; LDL Cholesterol,Calculated 119.7 mg/dL (0.0-131.0)
[2025-01-25] MEDS: HEPARIN SODIUM,PORCINE 5,000 UNIT/ML 1 ML VIAL SQ SCH (17:09)
[2025-01-26] MEDS: ACETAMINOPHEN TAB 325 MG TAB PO PRN (00:24)
[2025-01-26 06:46] LABS: Basophils # (A) 0.03 10*3/uL (0.00-0.10); Basophils % (A) 0.4 %; Eosinophils # (A) 0.41 10*3/uL (0.04-0.35); Eosinophils % (A) 5.1 %; HGB 13.1 g/dL (12.0-15.0); Lymphocytes # (A) 2.21 10*3/uL (0.90-5.00); Lymphocytes % (A) 27.7 %; MCH 29.4 pg (27.0-32.0); MCHC 34.5 g/dL (32.0-37.0); MCV 85.4 fL (80.0-97.0); Monocytes # (A) 0.57 10*3/uL (0.20-1.00); Monocytes % (A) 7.1 %; Neutrophils # (A) 4.71 10*3/uL (1.80-7.70); Neutrophils % (A) 59.1 %; Platelet Count 198 10*3/uL (140-440); RBC 4.45 10*6/uL (4.10-5.20); RDW 12.1 % (11.5-14.5); WBC 7.98 10*3/uL (4.50-10.00)
[2025-01-26 07:05] LABS: ALT 17 U/L (4-34); African American GFR (CKD) >90 (>60 ml/min/1.73 sqM); Albumin 3.6 g/dL (3.5-5.0); Anion Gap 9 mmol/L; Blood Urea Nitrogen 12 mg/dL (7-17); Calcium 9.2 mg/dL (8.4-10.2); Carbon Dioxide 22 mmol/L (22-30); Chloride 109 mmol/L (98-107); Glucose 91 mg/dL (74-99); Non-African American GFR(CKD) >90 (>60 ml/min/1.73 sqM); Sodium 140 mmol/L (137-145); Total Bilirubin 0.7 mg/dL (0.2-1.3); Total Protein 6.2 g/dL (6.3-8.2)
[2025-01-26 07:06] LABS: AST 23 U/L (14-36); Alkaline Phosphatase 60 U/L (38-126); Potassium 4.3 mmol/L (3.5-5.1)
[2025-01-26] MEDS ORDERED: SYMBICORT 160-4.5 MCG INHALER INHALATION PRN (09:03)
--- NOTE | 2025-01-26 09:45 | CA ---
Transthoracic Echo Report Name: Dori Tolliver Age: 69 Gender: F : 1955 Exam Date: 01/25/2025 13:20 Exam Location: [facility] Ht (in): 64 Wt (lb): 180 Ordering Physician: Jesús Garcia MD Attending/Referring Phys: [employer] Christin Marinelli RDCS Procedure CPT: Indications: Chest Pain Cardiac Hx: Technical Quality: Fair Contrast 1: Total Dose (mL): Contrast 2: Total Dose (mL): MEASUREMENTS (Male / Female) Normal Values 2D ECHO LV Diastolic Diameter PLAX 4.3 cm 4.2 - 5.9 / 3.9 - 5.3 cm LV Systolic Diameter PLAX 3.0 cm IVS Diastolic Thickness 1.4 cm 0.6 - 1.0 / 0.6 - 0.9 cm LVPW Diastolic Thickness 1.5 cm 0.6 - 1.0 / 0.6 - 0.9 cm LV Relative Wall Thickness 0.7 RV Internal Dim ED PLAX 1.6 cm LA Systolic Diameter LX 4.3 cm 3.0 - 4.0 / 2.7 - 3.8 cm LV Diastolic Volume MOD BP 25.2 cm??? 67 - 155 / 56 - 104 cm??? LV Systolic Volume MOD BP 9.4 cm??? 22 - 58 / 19 - 49 cm??? LV Ejection Fraction MOD BP 62.9 % >= 55 % LV Cardiac Index MOD BP 578.0 cm???/min???m??? LV Diastolic Volume MOD 4C 31.9 cm??? LV Systolic Volume MOD 4C 13.0 cm??? LV Ejection Fraction MOD 4C 59.3 % LV Cardiac Index MOD 4C 689.3 cm???/min???m??? LV Diastolic Length 4C 5.7 cm LV Systolic Length 4C 4.5 cm LV Diastolic Volume MOD 2C 17.9 cm??? LV Systolic Volume MOD 2C 5.9 cm??? LV Ejection Fraction MOD 2C 67.2 % LV Cardiac Index MOD 2C 438.2 cm???/min???m??? LV Diastolic Length 2C 4.9 cm LV Systolic Length 2C 3.9 cm LA Volume 35.9 cm??? 18 - 58 / 22 - 52 cm??? LA Volume Index 18.4 cm???/m??? 16 - 28 cm???/m??? M-MODE Aortic Root Diameter MM 3.1 cm LA Systolic Diameter MM 3.8 cm LA Ao Ratio MM 1.2 AV Cusp Separation MM 1.8 cm DOPPLER MV Area PHT 2.9 cm??? Mitral E Point Velocity 69.6 cm/s Mitral A Point Velocity 94.4 cm/s Mitral E to A Ratio 0.7 MV Deceleration Time 262.3 ms TR Peak Velocity 225.4 cm/s TR Peak Gradient 20.3 mmHg FINDINGS Left Ventricle Left ventricular ejection fraction is estimated at 55-60%. Moderately increased septal wall thickness. Moderately increased posterior wall thickness. Normal left ventricular systolic function with no obvious regional wall motion abnormalities. Left ventricular cavity size normal. Right Ventricle Normal right ventricular size and function. Right ventricular systolic pressure within normal limits. Right Atrium Mild right atrial dilatation. Left Atrium Moderately increased left atrial diameter. Mitral Valve Mitral valve thickened. Trace mitral regurgitation. No mitral stenosis. Aortic Valve Trileaflet aortic valve. No aortic valve stenosis or regurgitation. Tricuspid Valve Structurally normal tricuspid valve. No tricuspid stenosis. Mild tricuspid regurgitation. Pulmonic Valve Structurally normal pulmonic valve. Trace pulmonic regurgitation. No pulmonic stenosis. Pericardium No pericardial or pleural effusion. Aorta Normal size aortic root and proximal ascending aorta. CONCLUSIONS Normal LV size and systolic function with mild concentric LVH. Mild mitral and tricuspid regurgitation. No pericardial effusion. No significant pulmonary hypertension Previewed by: Dr. Marcelina Osuna MD (Electronically Signed) Final Date: 26 Jan 2025 09:44
[2025-01-26] MEDS: SODIUM CHLORIDE 0.9% 1,000 ML IV SCH (10:09)
[2025-01-26] MEDS: ASPIRIN 81 MG PO SCH (10:09)
--- NOTE | 2025-01-26 10:20 | P.CRDCN ---
History of Present Illness History of present illness: HISTORY OF PRESENT ILLNESS: This is a 69-year-old female with a past medical history significant for hypertension and hyperlipidemia. 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 We have been asked to see the patient in consultation for chest pain. Patient examined at the bedside. Patient states that she lives in [place] and has been away from home for several months on vacation. She states that she started having chest pain 2 nights ago. She states initially she thought it was heartburn. She describes it as a severe aching sensation of her left breast. She took some Tums without much relief. At the time of examination this morning she denies any chest pain or pressure. Denies any shortness of breath. Vital signs are stable. Patient is a former cigarette smoker and quit smoking approximately 25 years ago. She denies any known history of CAD. Denies any recent cardiac testing. DIAGNOSTICS: - EKG reveals sinus mechanism with no signs of acute ischemia. - Chest xray correlate for underlying COPD. Some strandy atelectasis at the left base. Otherwise no acute process seen.. - Laboratory data: WBC 7.98. Hemoglobin 13.1. Platelet count 198. Sodium 140. Potassium 4.3. BUN 12. Creatinine 0.55. Troponin negative x 3. Triglycerides 164. Cholesterol 201. LDL 119. TSH 1.510. - Current home cardiac medications include lisinopril 10 mg daily and Lipitor 40 mg daily. - Echocardiogram obtained this admission reveals ejection fraction 55 to 60%, mild concentric LVH, mild MR, mild TR - Patient underwent stress testing in November 2019 which was negative for ischemia REVIEW OF SYSTEMS: At the time of my exam: CONSTITUTIONAL: Denies fever or chills. HEENT: Denies blurred vision, vision changes, or eye pain. Denies hemoptysis CARDIOVASCULAR: Denies chest pain. Denies orthopnea. Denies PND. Denies palpitations RESPIRATORY: Denies shortness of breath. GASTROINTESTINAL: Denies abdominal pain. Denies nausea or vomiting. HEMATOLOGIC: Denies bleeding disorders. GENITOURINARY: Denies any blood in urine. SKIN: Denies pruitis. Denies rash. PHYSICAL EXAM: VITAL SIGNS: Reviewed. GENERAL: Well-developed in no acute distress. HEENT: Head is normocephalic. Pupils are equal, round. Sclerae anicteric. Mucous membranes of the mouth are moist. Neck supple. No JVD or thyromegaly LUNGS: Respirations even and unlabored. Lungs essentially clear to auscultation bilaterally. HEART: Regular rate and rhythm. S1 and S2 heard. ABDOMEN: Soft. Nondistended. Nontender. EXTREMITIES: Normal range of motion. No clubbing or cyanosis. Peripheral pulses intact. No lower extremity edema NEUROLOGIC: Awake and alert. Oriented x 3. ASSESSMENT: Chest pain Hypertension Hyperlipidemia Former nicotine dependence, patient quit smoking 25 years ago Obesity: BMI 30.9 PLAN: An acute coronary event has been ruled out 2D echo obtained and reviewed Resume home cardiac medications Patient to undergo stress testing today If negative, the patient may be discharged home from a cardiac standpoint Nurse practitioner note has been reviewed by physician. Signing provider agrees with the documented findings, assessment, and plan of care documented by [employer] as a scribe. Past Medical History Past Medical History: Asthma, COPD, Hyperlipidemia, Hypertension, Pneumonia History of Any Multi-Drug Resistant Organisms: None Reported Past Surgical History: Adenoidectomy, Cholecystectomy, Hysterectomy, Tonsillectomy Additional Past Surgical History / Comment(s): bilateral cataracts removed, R lower leg fx with surgical repair, colonoscopy. Past Anesthesia/Blood Transfusion Reactions: No Reported Reaction, Postoperative Nausea & Vomiting (PONV) Past Psychological History: No Psychological Hx Reported Smoking Status: Former smoker Past Alcohol Use History: None Reported Past Drug Use History: None Reported - Past Family History Father Family Medical History: No Reported History Additional Family Medical History / Comment(s): Father in a MVA Mother Family Medical History: No Reported History Additional Family Medical History / Comment(s): Mother is healthy and is 88yrs old. Medications and Allergies Home Medications Medication Instructions Recorded Confirmed Type Atorvastatin [Lipitor] 40 mg PO DAILY 04/14/20 01/25/25 History Fluticasone Propion/Salmeterol 1 puff INHALATION RT-BID PRN 01/25/25 01/25/25 History [Fluticasone-Salmeterol 113-14] lisinopriL [Zestril] 10 mg PO DAILY 01/25/25 01/25/25 History Allergies Allergy/AdvReac Type Severity Reaction Status Date / Time No Known Allergies Allergy Verified 01/25/25 12:38 Physical Exam Vitals: Vital Signs Temp Pulse Pulse Resp BP BP Pulse Ox 01/26/25 08:00 98.1 F 82 18 128/78 96 01/26/25 00:27 98.1 F 80 16 137/70 94 L 01/25/25 19:58 98.1 F 81 20 114/68 94 L 01/25/25 14:00 72 18 132/70 96 01/25/25 13:00 97.9 F 75 18 131/64 96 01/25/25 12:00 73 18 156/74 97 01/25/25 11:00 72 18 145/77 97 01/25/25 10:38 77 18 148/85 96 Intake and Output 01/25/25 01/26/25 01/26/25 22:59 06:59 14:59 Other: Voiding Method Toilet Toilet Toilet Results 01/26/25 06:26 01/26/25 06:26 Cardiac Enzymes 01/25/25 01/25/25 01/25/25 Range/Units 09:44 12:48 15:28 AST (14-36) U/L Troponin I <0.012 <0.012 <0.012 (0.000-0.034) ng/mL 01/26/25 Range/Units 06:26 AST 23 (14-36) U/L Troponin I (0.000-0.034) ng/mL Lipids 01/25/25 Range/Units 09:44 Triglycerides 164.00 H (0.00-149.00) mg/dL Cholesterol 201.00 H (0.00-200.00) mg/dL HDL Cholesterol 48.50 (40.00-60.00) mg/dL Cholesterol/HDL Ratio 4.14 Ratio CBC 01/26/25 Range/Units 06:26 WBC 7.98 (4.50-10.00) 10*3/uL RBC 4.45 (4.10-5.20) 10*6/uL Hgb 13.1 (12.0-15.0) g/dL Hct 38.0 (37.2-46.3) % Plt Count 198 (140-440) 10*3/uL Comprehensive Metabolic Panel 01/26/25 Range/Units 06:26 Sodium 140 (137-145) mmol/L Potassium 4.3 (3.5-5.1) mmol/L Chloride 109 H (98-107) mmol/L Carbon Dioxide 22 (22-30) mmol/L BUN 12 (7-17) mg/dL Creatinine 0.55 (0.52-1.04) mg/dL Glucose 91 (74-99) mg/dL Calcium 9.2 (8.4-10.2) mg/dL AST 23 (14-36) U/L ALT 17 (4-34) U/L Alkaline Phosphatase 60 (38-126) U/L Total Protein 6.2 L (6.3-8.2) g/dL Albumin 3.6 (3.5-5.0) g/dL Current Medications Generic Name Dose Route Start Last Admin Trade Name Freq PRN Reason Stop Dose Admin Acetaminophen 650 mg 01/26/25 00:07 01/26/25 00:24 Acetaminophen Tab 325 Mg Tab PO 650 mg Q4HR PRN Administration Fever and/ or Pain Aspirin 81 mg 01/26/25 09:30 01/26/25 10:09 Aspirin 81 Mg PO 81 mg DAILY DARYL Administration Atorvastatin Calcium 40 mg 01/26/25 21:00 Atorvastatin 40 Mg Tab PO HS DARYL Budesonide/Formoterol Fumarate 2 puff 01/26/25 09:03 Symbicort 160-4.5 Mcg Inhaler INHALATION RT-BID PRN ASTHMA Heparin Sodium (Porcine) 5,000 unit 01/25/25 16:00 01/26/25 10:09 Heparin Sodium,Porcine 5,000 Unit/Ml 1 Ml Vial SQ 5,000 unit Q8HR DARYL Administration Sodium Chloride 1,000 mls @ 75 mls/hr 01/26/25 09:30 01/26/25 10:09 Saline 0.9% IV 75 mls/hr .[id number] DARYL Administration Lisinopril 10 mg 01/26/25 09:15 Lisinopril 10 Mg Tab PO DAILY DARYL Naloxone HCl 0.2 mg 01/25/25 11:46 Naloxone 0.4 Mg/Ml 1 Ml Vial IV Q2M PRN Opioid Reversal Ondansetron HCl 4 mg 01/25/25 11:46 Ondansetron 4 Mg/2 Ml Vial IVP Q8HR PRN Nausea And Vomiting Intake and Output 01/25/25 01/26/25 01/26/25 22:59 06:59 14:59 Other: Voiding Method Toilet Toilet Toilet 01/26/25 06:26 01/26/25 06:26
[2025-01-26] MEDS: lisinopriL 10 MG TAB PO SCH (13:07)
[2025-01-26 14:21] VITALS: BP 137/83; PULSE 84; RESP 16; TEMP 98.3
--- NOTE | 2025-01-26 16:57 | CA ---
Stress Echo Report Dori Tolliver Age: 69 Gender: F : 1955 Exam Date: 01/26/2025 11:53 Exam Location: [facility] Ht (in): 64 Wt (lb): 180 Ordering Physician: Beatriz Urias Referring Physician: [id number] Manager: Sammi Uribe RDCS Technologist Procedure CPT: Indication: CP ICD-9 Codes: Rhythm: Patient History: chest pain,hypertension and hyperlipidemia. Cardiac Medications: Medications in past 24 hours: Contrast: Definity Stress Results Protocol: Tavares Total dose(mL): 2 Exercise Duration (min:sec): 2:[address] Depression (mm): Angina Score: Naqvi Score: METS: 3.6 Resting HR: 77 Resting BP: 146 / 76 Peak HR: 160 Peak BP: 205 / 75 Max Predicted HR: 149 107 % Max Predicted HR Target HR: 127 Double Product: [id number] Stress Summary: BP Response: Reason for Termination: Reached target heart rate or work-load. , Maximal effort/unable to continue Cardiac Symptoms: No symptoms. ECG Analysis Resting ECG: NSR WNL Stress ECG: No ischemia Arrhythmia: None Echo Analysis Resting Echo: Normal wall motion Peak Echo Analysis: Excellent Augmentation No Ischemia MEASUREMENTS (Male/Female) Normal Values CONCLUSIONS Normal EKG and Echo stress test. Poor exercise capacity Dr. Marcelina Osuna MD (Electronically Signed) Final Date: 26 Jan 2025 16:56
--- NOTE | 2025-01-26 17:03 | P.DS ---
Providers Date of admission: 01/25/25 11:46 Attending physician: Abigail Davenport MD Consults: 01/25/25 11:46 Consult Physician Routine Consulting Provider: [facility] Consult Reason/Comments: chest pain Do you want consulting provider notified?: Yes Primary care physician: Stated None Hospital Course: Discharge Diagnosis: Chest pain, noncardiac, ACS ruled out Hypertension Hyperlipidemia Mild intermittent asthma not in acute exacerbation Hospital Course: Patient is a 69-year-old female with past medical history of asthma, remote smoking history quit in 1997, hyperlipidemia, hypertension, who presented to the ER on 01/25/2025 with chest pain that started last night at rest, described as dull ache under her left breast, nonradiating, no alleviating or exacerbating factors. No prior history of pain like that in the past, no associated shortness of breath, dizziness, lightheadedness, nausea, vomiting, abdominal pain. She tried to take Tums history initially thought it was indigestion, no symptoms relief. The pain was persistently 7 out of 10, prompting her to come for further evaluation to the ER. On admission afebrile, heart rate in 70s, BP elevated 168/87, satting well on room air. Pertinent positives and negatives as discussed in HPI, a complete review of systems was performed and all other systems are negative. Blood work showed unremarkable CBC, CMP, BNP and troponin negative. Chest x-ray showed signs of COPD, left basilar atelectasis, no acute process. Patient received nitroglycerin with chest pain resolution, will be admitted as observation for cardiology consultation and evaluation of chest pain. TTE showed EF of 55 to 60% with no regional wall motion abnormalities. Cardiology recommended stress echo that came back negative. Patient was cleared for discharge by cardiology Patient seen and examined at bedside.[] Vital signs reviewed and stable. General: [nontoxic], [no distress], [appears at stated age] Derm: [warm], [dry] Head: [atraumatic], [normocephalic], [symmetric] Eyes: [EOMI], [no lid lag], [anicteric sclera] Mouth: [no lip lesion], [mucus membranes moist] Cardiovascular: [S1S2 reg], [no murmur] Lungs: [CTA bilateral], [no rhonchi, no rales] , [no accessory muscle use] Abdominal: [soft], [ nontender to palpation], [no guarding], [no appreciable organomegaly] Ext: [no gross muscle atrophy], [no edema], [no contractures] Neuro: [ CN II-XI grossly intact], [no focal neuro deficits] Psych: [Alert], [oriented], [appropriate affect] A total of 40 minutes of time were spent preparing this complex discharge summary. Patient was discharged on 01/26/2025. Patient Condition at Discharge: Stable Plan - Discharge Summary Discharge Rx Participant: No New Discharge Prescriptions: Continue Atorvastatin [Lipitor] 40 mg PO DAILY lisinopriL [Zestril] 10 mg PO DAILY Fluticasone Propion/Salmeterol [Fluticasone-Salmeterol 113-14] 1 puff INHALATION RT-BID PRN PRN Reason: ASTHMA Discharge Medication List Atorvastatin [Lipitor] 40 mg PO DAILY 04/14/20 [History] Fluticasone Propion/Salmeterol [Fluticasone-Salmeterol 113-14] 1 puff INHALATION RT-BID PRN 01/25/25 [History] lisinopriL [Zestril] 10 mg PO DAILY 01/25/25 [History] Follow up Appointment(s)/Referral(s): None,Stated [Primary Care Provider] - 1-2 days Patient Instructions/Handouts: Noncardiac Chest Pain (DC) Activity/Diet/Wound Care/Special Instructions: Please, follow-up with your primary care physician Discharge Disposition: HOME SELF-CARE
[2025-01-26] MEDS ORDERED: ATORVASTATIN 40 MG TAB PO SCH (21:00)
== END 2025-01-26 17:19 | disposition home or self-care (01) ==
LOC: EC 09:04 → 1SOBS 11:46
PROVIDERS: ADMIT Student in an Organized Health Care Education/Training Program; ATTEND Student in an Organized Health Care Education/Training Program
DX: R07.89 Other chest pain (principal); J44.89 Other specified chronic obstructive pulmonary disease; I10 Essential (primary) hypertension; E78.5 Hyperlipidemia, unspecified; J45.20 Mild intermittent asthma, uncomplicated; E66.9 Obesity, unspecified; Z68.30 Body mass index [BMI] 30.0-30.9, adult; Z87.891 Personal history of nicotine dependence; Z79.51 Long term (current) use of inhaled steroids; Z79.82 Long term (current) use of aspirin; Z79.899 Other long term (current) drug therapy
CPT/HCPCS: 96372 ×2; 99285; 36415; 93005; 93306; 83880; 80061; 80053 ×2; 84443; 83690; 83735; 84484; 85025 ×2; 85610; 85730; 83036; 71046; G0378 ×2; C8930; J1644 ×2; Q9957; 93351